=== PATIENT | male | born 1980 | race Caucasian/White ===

== ENCOUNTER 2019-02-15 08:08 | Emergency (ER) | payer SELFPAY ==
[2019-02-15 09:36] LABS: EOS # 0.3 K/uL (0.0-0.7); HEMOGLOBIN 15.8 g/dL (12.0-18.0); MEAN CELL VOLUME 83.8 fL (80.0-94.0); MONO # 0.5 K/uL (0.0-0.8); NRBC % 0.1 % (0.0-2.0)
[2019-02-15 09:42] LABS: INR 0.9; PARTIAL THROMBOPLASTIN TIME 30.4 SECONDS (21-34); PROTHROMBIN TIME 10.3 SECONDS (9.7-12.2)
[2019-02-15 09:44] LABS: BASO # 0.1 K/uL (0.0-0.2); BASO % 0.6 % (0.0-2.0); EOS % 3.4 % (0.0-4.0); LYMPH # 3.2 K/uL (1.0-4.3); LYMPH % 31.8 % (20.0-40.0); MEAN CORPUSCULAR HGB CONC 33.5 g/dL (33.0-37.0); MEAN PLATELET VOLUME 11.7 fL (7.2-11.7); MONO % 4.9 % (0.0-10.0); NEUT # 5.9 K/uL (1.8-7.0); NEUT % 59.3 % (50.0-75.0); RBC 5.65 Mil/uL (4.40-5.90); WHITE BLOOD COUNT 9.9 K/uL (4.8-10.8)
[2019-02-15 09:46] LABS: ALB/GLOB RATIO 1.5 (1.0-2.1); ALBUMIN 4.6 g/dL (3.5-5.0); ALT/SGPT 45 U/L (21-72); AST/SGOT 33 U/L (17-59); BLOOD UREA NITROGEN 12 mg/dL (9-20); CALCIUM 9.1 mg/dl (8.6-10.4); GFR NON-AFRICAN AMERICAN > 60
[2019-02-15] MEDS ORDERED: Potassium Chloride 20 mEq/15 ml LIQ UD PO STA (09:48)
[2019-02-15 09:50] LABS: URINE BILIRUBIN NEGATIVE (NEGATIVE); URINE BLOOD NEGATIVE (NEGATIVE); URINE CLARITY Clear (Clear); URINE COLOR Straw (YELLOW); URINE GLUCOSE (UA) NORMAL (Normal); URINE LEUKOCYTE ESTERASE NEG Leu/uL (Negative); URINE PROTEIN NEGATIVE (NEGATIVE); URINE UROBILINOGEN NORMAL mg/dL (0.2-1.0)
[2019-02-15 09:58] LABS: CK-MB 0.77 ng/mL (0.0-3.38)
[2019-02-15 10:00] LABS: BARBITURATES, UR NEGATIVE (NEGATIVE); BENZODIAZEPINES, UR NEGATIVE (NEGATIVE); OPIATES, UR NEGATIVE (NEGATIVE); PHENCYCLIDINE, UR NEGATIVE (NEGATIVE)
[2019-02-15] MEDS ORDERED: Potassium Chloride 20 mEq ER Tab PO ONE (10:04)
[2019-02-15 10:30] LABS: D DIMER < 200 ng/mlDDU (0-243)
[2019-02-15 10:45] VITALS: BP 127/85; O2SAT 100
--- NOTE | 2019-02-15 11:32 | C.PDOC ---
History Of Present Illness 38 year old male with a history of Crohn's disease presents to the emergency department with complaints of shortness of breath with one episode of nausea and vomiting prior to going to work this morning. Patient also reports a burning sensation in his epigastric area as well as a dry mouth. Patient reports a history of anxiety and states he began to feel anxious, but states that "anxiety feels different this time". Patient denies chest pain. Time Seen by Provider: 02/15/19 08:33 Chief Complaint (Nursing): Anxiety History Per: Patient History/Exam Limitations: no limitations Onset/Duration Of Symptoms: Hrs Current Symptoms Are (Timing): Still Present Past Medical History Reviewed: Historical Data, Nursing Documentation, Vital Signs Vital Signs: Last Vital Signs Temp 98 F 02/15/19 08:23 Pulse 75 02/15/19 10:44 Resp 21 02/15/19 10:44 BP 127/85 02/15/19 10:44 Pulse Ox 100 02/15/19 10:44 Primary Care Provider: Non [facility] Provider, - Medical History PMH: Crohn's Disease Surgical History: No Surg Hx Family History: States: No Known Family Hx - Social History Hx Alcohol Use: No Hx Substance Use: No - Immunization History Hx Tetanus Toxoid Vaccination: No Hx Influenza Vaccination: No Hx Pneumococcal Vaccination: No Review Of Systems Except As Marked, All Systems Reviewed And Found Negative. Constitutional: Negative for: Fever, Chills Cardiovascular: Negative for: Chest Pain Respiratory: Positive for: Shortness of Breath Gastrointestinal: Positive for: Nausea, Vomiting, Abdominal Pain Neurological: Negative for: Weakness, Numbness Psych: Positive for: Anxiety Physical Exam - Physical Exam Appears: Non-toxic, No Acute Distress Skin: Warm, Dry Head: Atraumatic, Normacephalic Eye(s): bilateral: Normal Inspection, PERRL, EOMI Nose: Normal Oral Mucosa: Moist Neck: Normal, Supple Chest: Symmetrical, No Tenderness Cardiovascular: Rhythm Regular, No Murmur Respiratory: Normal Breath Sounds, No Rales, No Rhonchi, No Wheezing Gastrointestinal/Abdominal: Soft, No Tenderness, No Guarding, No Rebound Extremity: Normal ROM Neurological/Psych: Oriented x3, Normal Speech, Normal Cognition ED Course And Treatment - Laboratory Results Result Diagrams: 02/15/19 09:28 02/15/19 09:28 Lab Results: PT 10.3 SECONDS (9.7-12.2) 02/15/19 INR 0.9 02/15/19 APTT 30.4 SECONDS (21-34) 02/15/19 D-Dimer, Quantitative < 200 ng/mlDDU (0-243) 02/15/19 Troponin I < 0.0120 ng/mL (0.00-0.120) 02/15/19 Total Bilirubin 0.3 mg/dL (0.2-1.3) 02/15/19 AST 33 U/L (17-59) 02/15/19 ALT 45 U/L (21-72) 02/15/19 Alkaline Phosphatase 97 U/L (38-126) 02/15/19 Total Protein 7.6 g/dL (6.3-8.3) 02/15/19 Albumin 4.6 g/dL (3.5-5.0) 02/15/19 Globulin 3.1 gm/dL (2.2-3.9) 02/15/19 Albumin/Globulin Ratio 1.5 (1.0-2.1) 02/15/19 Urine Color Straw (YELLOW) 02/15/19 Urine Clarity Clear (Clear) 02/15/19 Urine pH 7.0 (5.0-8.0) 02/15/19 Ur Specific [place] 1.002 (1.003-1.030) L 02/15/19 Urine Protein Negative mg/dL (NEGATIVE) 02/15/19 Urine Glucose (UA) Normal mg/dL (Normal) 02/15/19 Urine Ketones Negative mg/dL (NEGATIVE) 02/15/19 Urine Blood Negative (NEGATIVE) 02/15/19 Urine Nitrate Negative (NEGATIVE) 02/15/19 Urine Bilirubin Negative (NEGATIVE) 02/15/19 Urine Urobilinogen Normal mg/dL (0.2-1.0) 02/15/19 Ur Leukocyte Esterase Neg Erika/uL (Negative) 02/15/19 Urine WBC (Auto) < 1 /hpf (0-5) 02/15/19 09:28 Urine RBC (Auto) < 1 /hpf (0-3) 02/15/19 09:28 ECG: Interpreted By Me, Viewed By Me ECG Rhythm: Sinus Rhythm ECG Interpretation: No Acute Changes Interpretation Of ECG: ST abnormalities in inferior leads Rate From EC O2 Sat by Pulse Oximetry: 100 (RA) Pulse Ox Interpretation: Normal - Radiology CXR: Interpreted by Me CXR Interpretation: Yes: No Acute Disease Progress Note: Plan: EKG. Chemistry. Hematology. CXR. Potassium Chloride po for hypokalemia. Urinalysis. On re-evaluation patient feels better, asymptomatic now and wants to be d/c home. Disposition - Disposition Referrals: [facility] at [facility] [Outside] [facility] [Outside] Disposition: HOME/ ROUTINE Disposition Time: 11:18 Condition: STABLE Additional Instructions: Follow up with PMD/clinic within 1-2 days. Return to ED if feel worse. Instructions: Anxiety, Adult (DC) Forms: [employer] ([place]) - Clinical Impression Clinical Impression: Anxiety - PA / CUT OFF MAN / Resident Statement MD/DO has reviewed & agrees with the documentation as recorded. - Scribe Statement The provider has reviewed the documentation as recorded by the Scribe (Mateo Reyes) All medical record entries made by the Scribe were at my direction and personally dictated by me. I have reviewed the chart and agree that the record accurately reflects my personal performance of the history, physical exam, medical decision making, and the department course for this patient. I have also personally directed, reviewed, and agree with the discharge instructions and disposition.
[2019-02-15 11:41] VITALS: PULSE 73; RESP 17; TEMP 98.2
--- NOTE | 2019-02-15 17:25 | RAD ---
Date of service: 02/15/2019 PROCEDURE: CHEST RADIOGRAPH, 1 VIEW HISTORY: SOB COMPARISON: None available. FINDINGS: LUNGS: Clear. PLEURA: No pneumothorax or pleural fluid seen. CARDIOVASCULAR: No aortic atherosclerotic calcification present. Normal. OSSEOUS STRUCTURES: No significant abnormalities. VISUALIZED UPPER ABDOMEN: Normal. OTHER FINDINGS: None. IMPRESSION: No active disease.
--- NOTE | 2019-02-18 07:41 | CARD ---
APPROVED REPORT Date of service: 02/15/2019 EKG Measurement Heart [id number] [id number] <Conclusion> Normal sinus rhythm Nonspecific ST and T wave abnormality Abnormal ECG
== END 2019-02-15 11:55 | disposition home or self-care (01) ==
LOC: EDBD 08:08 → C.ER 08:08
DX: F41.9 Anxiety disorder, unspecified (principal)
CPT/HCPCS: 71045; 80053; 81001; 82550; 82553; 84484; 85025; 85378; 85610; 85730; 99285; G0480